=== PATIENT | female | born 1980 | race Caucasian/White ===

== ENCOUNTER 2023-12-29 01:15 | Observation (INO) | payer OTHER ==
[2023-12-29] VITALS (27 sets, daily range): BP systolic 80–116; BP diastolic 51–73; PULSE 59–98; RESP 12–19; O2SAT 97–98
[~2023-12-29] VITALS: Ht 162.6 cm; Wt 64.4 kg
[2023-12-29] MEDS ORDERED: CHOL4POW4 PO (03:07)
[2023-12-29] MEDS ORDERED: ONDANSETRON 4MG INJ IV PRN (04:00)
[2023-12-29] MEDS ORDERED: POTASSIUM CHLORIDE 20MEQ/100ML 100 ML IV PRN (04:00)
[2023-12-29] MEDS ORDERED: MAGNESIUM 2GM PREMIX 50ML 50 ML IV PRN (04:00)
[2023-12-29] MEDS: ZOSYN 3.375GM +NS 50ML IV SCH (04:43)
[2023-12-29] MEDS: 0.9%NACL 1000ML 1,000 ML IV SCH (04:43)
[2023-12-29 04:55] LABS: BASOPHILS # (AUTO) 0.04 K/uL (0.00-0.20); BASOPHILS % (AUTO) 0.3 % (0.0-5.0); EOSINOPHILS # (AUTO) 0.04 K/uL (0.00-0.70); EOSINOPHILS % (AUTO) 0.3 % (0.0-8.0); HEMATOCRIT 34.6 % (36-48); IMMATURE GRANULOCYTE ABSOLUTE 0.06 K/uL (0-1); LYMPHOCYTES # (AUTO) 2.2 K/uL (1.0-4.8); LYMPHOCYTES % (AUTO) 16.9 % (21.0-51.0); MEAN CORPUSCULAR HGB CONC 34.4 g/dL (32.0-36.0); MEAN CORPUSCULAR VOLUME 90.1 fL (79-99); MONOCYTES # (AUTO) 1.2 K/uL (0.1-1.0); MONOCYTES % (AUTO) 9.4 % (3.0-13.0); NEUTROPHILS # (AUTO) 9.6 K/uL (1.8-7.7); NEUTROPHILS % (AUTO) 72.6 % (40.0-77.0); PLATELET COUNT (AUTO) 224 K/uL (130-400); RED BLOOD CELL COUNT(AUTO) 3.84 MIL/uL (4.00-5.50); RED CELL DISTRIBUTION WIDTH 12.4 % (11.0-15.5); WHITE BLOOD COUNT (AUTO) 13.2 K/uL (4.8-10.8)
[2023-12-29 05:07] LABS: INR <= 0.93 (0.85-1.15); PROTHROMBIN TIME 10.8 SEC (9.6-11.6)
[2023-12-29 05:19] LABS: CREATININE 0.7 mg/dL (0.5-1.0); POTASSIUM 4.2 mmol/L (3.5-5.1)
[2023-12-29 05:23] LABS: ALBUMIN 3.1 g/dL (3.5-5.0); BILIRUBIN,TOTAL 0.5 mg/dL (0.2-1.0); MAGNESIUM 1.8 mg/dL (1.80-2.40); TOTAL PROTEIN, SERUM 6.1 g/dL (6.0-8.3)
[2023-12-29] MEDS: FAMOTIDINE 20MG VIAL IV SCH (08:33)
[2023-12-29] MEDS: KETOROLAC 15MG/ML VIAL (15MG/ML) IM PRN (08:34)
[2023-12-29] MEDS: SCOPOLAMINE HYDROBROMIDE 1 EACH ADH..PATCH TD ONE (10:27)
[2023-12-29] MEDS: FAMOTIDINE 20MG VIAL IV ONE (10:28)
[2023-12-29] MEDS: ACETAMINOPHEN 1,000 MG/100 ML VIAL IV ONE (10:28)
[2023-12-29] MEDS ORDERED: ALBUTEROL INHALER 90MCG/INH IH ONE (10:29)
[2023-12-29] MEDS ORDERED: LIDOCAINE PF 100MG/5ML (2%) SYRINGE 5ML ONE (10:30)
[2023-12-29] MEDS ORDERED: PROPOFOL 10 MG/ML 20ML VIAL IV ONE (10:30)
[2023-12-29] MEDS ORDERED: ROCURONIUM BROMIDE 10MG/1ML 5ML VL ONE (10:30)
[2023-12-29] MEDS ORDERED: DEXAMETHASONE SOD PHOSPHATE 10MG/ML 1ML VIAL ONE (10:31)
[2023-12-29] MEDS ORDERED: FENTANYL CITRATE PF 50 MCG/1 ML 2ML VIAL ONE (10:31)
[2023-12-29] MEDS ORDERED: ONDANSETRON 4MG INJ ONE (10:31)
[2023-12-29] MEDS ORDERED: BUPIVACAINE/PF 0.5% 30ML VIAL ONE (10:31)
[2023-12-29] MEDS: BUPIVACAINE/PF 0.5% 30ML VIAL INJ ONE (10:49)
[2023-12-29] MEDS ORDERED: GLYCOPYRROLATE 0.2 MG/ML 5 ML VIAL ONE (11:23)
[2023-12-29] MEDS ORDERED: NEOSTIGMINE METHYLSULFATE 1MG/ML IV ONE (11:23)
[2023-12-29] MEDS: ONDANSETRON 4MG INJ ONE (11:57)
[2023-12-29] MEDS: MEPERIDINE-PF 25 MG/ML SYG ONE (11:58)
[2023-12-29] MEDS: METOCLOPRAMIDE 10 MG/2 ML VIAL ONE (12:34)
[2023-12-29] MEDS ORDERED: 0.9% NACL 500ML IV.SOLN 500 ML IV SCH (16:00)
[2023-12-29] MEDS: KETOROLAC 15MG/ML VIAL (15MG/ML) IV PRN (19:35)
[2023-12-30 01:40] VITALS: BP 103/47; PULSE 68; RESP 16
[2023-12-30 04:00] VITALS: BP 95/60; PULSE 64; RESP 17
[2023-12-30 05:03] LABS: BASOPHILS # (AUTO) 0.02 K/uL (0.00-0.20); BASOPHILS % (AUTO) 0.2 % (0.0-5.0); EOSINOPHILS # (AUTO) 0.03 K/uL (0.00-0.70); EOSINOPHILS % (AUTO) 0.3 % (0.0-8.0); HEMATOCRIT 29.7 % (36-48); IMMATURE GRANULOCYTE ABSOLUTE 0.03 K/uL (0-1); LYMPHOCYTES # (AUTO) 2.5 K/uL (1.0-4.8); LYMPHOCYTES % (AUTO) 22.9 % (21.0-51.0); MEAN CORPUSCULAR HEMOGLOBIN 31.5 pg (27.0-33.0); MEAN CORPUSCULAR VOLUME 95.5 fL (79-99); MONOCYTES # (AUTO) 0.7 K/uL (0.1-1.0); MONOCYTES % (AUTO) 6.5 % (3.0-13.0); NEUTROPHILS # (AUTO) 7.5 K/uL (1.8-7.7); NEUTROPHILS % (AUTO) 69.8 % (40.0-77.0); PLATELET COUNT (AUTO) 172 K/uL (130-400); RED BLOOD CELL COUNT(AUTO) 3.11 MIL/uL (4.00-5.50); RED CELL DISTRIBUTION WIDTH 12.8 % (11.0-15.5); WHITE BLOOD COUNT (AUTO) 10.8 K/uL (4.8-10.8)
[2023-12-30 05:35] LABS: ALBUMIN 2.6 g/dL (3.5-5.0); BILIRUBIN,TOTAL 0.3 mg/dL (0.2-1.0); CREATININE 0.6 mg/dL (0.5-1.0); POTASSIUM 3.6 mmol/L (3.5-5.1); TOTAL PROTEIN, SERUM 5.4 g/dL (6.0-8.3)
[2023-12-30] MEDS ORDERED: KCL 20 MEQ ERTAB PO PRN (07:00)
[2023-12-30] MEDS ORDERED: POTASSIUM CHLORIDE 10% ELIXIR 20 MEQ/15 ML UDCUP PO PRN (07:00)
[2023-12-30 08:00] VITALS: O2SAT 99
[2023-12-30 08:58] VITALS: BP 101/70; PULSE 66; RESP 17
[2023-12-30 11:44] VITALS: BP 90/55; PULSE 79; RESP 17
== END 2023-12-30 17:00 | disposition home or self-care (01) ==
LOC: 3AH 02:39 → INTOOBSV 02:39
PROVIDERS: ADMIT Internal Medicine; ATTEND Internal Medicine
DX: K35.80 Unspecified acute appendicitis (principal); D72.829 Elevated white blood cell count, unspecified; R16.0 Hepatomegaly, not elsewhere classified; Z79.899 Other long term (current) drug therapy
CPT/HCPCS: 44970; 96376 ×2; 96372; 96365; 96366 ×2; 96375 ×2; 83735; 80053 ×2; 85025 ×2; 85610; 85730; 81025; 36415 ×2; 88304; A6207; J7030; A4344; J3490 ×6; J3010; J1100; J2001; J2704; J2405 ×2; J2710; J2543 ×4; J0665 ×2; J2175; J2765; J1885 ×4; A6206; C1769 ×3; A4649 ×4; A4930; A4223; A4222; A4216; A4600; G0378 ×16